=== PATIENT | male | born 1960 | race Caucasian/White ===

== ENCOUNTER 2017-06-06 09:08 | Emergency (ER) | payer MEDICAID, MEDICARE, OTHER ==
[~2017-06-06] VITALS: Ht 172.7 cm; Wt 123.0 kg
[2017-06-06 09:10] VITALS: BP 176/102
== END 2017-06-06 10:23 | disposition home or self-care (01) ==
LOC: ED 09:43
DX: Z00.8 Encounter for other general examination (principal); I25.2 Old myocardial infarction; Z90.49 Acquired absence of other specified parts of digestive tract; Z88.0 Allergy status to penicillin
CPT/HCPCS: 72170; 99284